=== PATIENT | female | born 1940 | race Caucasian/White ===

== ENCOUNTER 2024-07-03 09:39 | Inpatient (IN) | payer MEDICARE, BC, SELFPAY ==
[2024-07-03] VITALS (31 sets, daily range): BP systolic 145–210; BP diastolic 79–131; PULSE 61–93; TEMP 36.6–37.2; O2SAT 90–99; BMI 24.2; BMI 20.3
--- NOTE | 2024-07-03 10:01 | XR_ITS ---
The [address] [address] Patient Name: MEKHI SAHNI MRN: [id number] date: 1940 Sex: F Assigned Patient Location: ER Current Patient Location: ED.MAIN Accession/Order Number: [id number] Exam Date: 07/03/2024 10:33 Report Date: 07/03/2024 10:58 At the request of: OSWALDO WALSH Procedure: XR chest 2V EXAMINATION: XR chest 2V HISTORY: sob COMPARISON: No relevant comparison available. FINDINGS: LUNGS: Hyperexpanded lungs. No appreciable infiltrates, mass, or significant chronic interstitial changes. VASCULATURE: No increased pulmonary vasculature. PLEURA: No pneumothorax, effusion, or pleural thickening. CARDIAC: Borderline cardiomegaly. MEDIASTINUM: No visible mass or adenopathy. BONES: No fracture or visible bone lesion. OTHER: Negative. XR/XR chest 2V IMPRESSION: 1. No acute cardiopulmonary process. 2. Hyperexpanded lungs; possible mild COPD. Electronically authenticated by: ERI OROURKE Date: 07/03/2024 10:58
[2024-07-03] MEDS: IPRATROPIUM/ALBUTEROL SULFATE 3 ML AMPUL.NEB IH (10:19)
[2024-07-03 10:24] LABS: Hematocrit 42.1 % (36.0-48.0); Hemoglobin 13.6 g/dL (12.0-16.0); Mean Corpuscular HGB Conc 32.3 g/dL (29.9-35.2); Mean Corpuscular Hemoglobin 31.9 pg (26.7-34.0); Mean Corpuscular Volume 98.6 fL (81.0-99.0); Mean Platelet Volume 10.3 fL (9.5-13.5); Platelet Count 219 10^3/uL (150-450); Red Blood Count 4.27 10^6/uL (4.20-5.40); Red Cell Distribution Width 13.4 % (11.0-15.0); White Blood Count 9.8 10^3/uL (4.0-11.0)
--- NOTE | 2024-07-03 10:39 | ED.SOB1 ---
HPI - SOB/Dyspnea General Chief Complaint: Shortness of Breath/Dyspnea Stated Complaint: WEAKNESS Time Seen by Provider: 07/03/24 09:47 History of Present Illness HPI Narrative: Patient presents to ED for possible aspiration. Apparently patient went to have breakfast this morning at her assisted living and after breakfast she went back to her room and was in her chair. When they came to check on her shortly after that they said she seemed to be gurgling and short of breath and not breathing well. Her oxygenation was 90 to 92% on room air. She is not normally on any oxygen. They denied that she has any respiratory issues. The patient states she does not remember choking thing but I believe does have some dementia slight. She is a DNR comfort care and assisted living. The patient has no complaints at this time. She does have a rattly cough with mucus production. She does not seem to be stridorous or in acute respiratory distress but does continue to cough up liquidy mucus. Related Data Home Medications ?Medication ?Instructions ?Recorded ?Confirmed acetaminophen 325 mg capsule 650 mg PO Q4H PRN fever or pain 07/03/24 07/03/24 atorvastatin 10 mg tablet 10 mg PO .QHS 07/03/24 07/03/24 calcium 315 mg (as 1 tab PO BID 07/03/24 07/03/24 citrate)-vitamin D3 6.25 mcg (250 unit) tablet carbidopa 25 mg-levodopa 100 mg 1 tab PO Q8H 07/03/24 07/03/24 tablet clopidogrel 75 mg tablet 75 mg PO DAILY 07/03/24 07/03/24 diclofenac sodium 1 % topical gel 2 g topical Q12H PRN pain 07/03/24 07/03/24 (Voltaren Arthritis Pain) dorzolamide 2 % eye drops 1 drp ophthalmic (eye) Q12H 07/03/24 07/03/24 ergocalciferol (vitamin D2) 1,250 1,250 mcg PO .Monday07/03/24 07/03/24 mcg (50,000 unit) capsule (Vitamin D2) latanoprost 0.005 % eye drops 1 drp ophthalmic (eye) .QHS 07/03/24 07/03/24 loperamide 2 mg capsule 2 mg PO QID PRN loose stool 07/03/24 07/03/24 megestrol 20 mg tablet 20 mg PO Q12H 07/03/24 07/03/24 metoclopramide HCl 5 mg tablet 5 mg PO BID 07/03/24 07/03/24 ondansetron 4 mg disintegrating 4 mg PO Q4H PRN nausea and vomiting 07/03/24 07/03/24 tablet pantoprazole 40 mg tablet,delayed 40 mg PO DAILY 07/03/24 07/03/24 release polyethylene glycol 3350 17 gram 17 g PO DAILY 07/03/24 07/03/24 oral powder packet (ClearLax) Allergies Allergy/AdvReac Type Severity Reaction Status Date / Time codeine AdvReac Intermediate Abdominal Verified 07/03/24 10:03 Pain Review of Systems ROS Status of ROS 10 or more systems reviewed and unremarkable except as noted in history and below [facility] Medical History (Updated 07/03/24 @ 12:11 by Kasia Savage DO) Autonomic neuropathy ?G90.9 - Disorder of the autonomic nervous system, unspecified (ICD-10) Dysphagia ?R13.10 - Dysphagia, unspecified (ICD-10) GERD (gastroesophageal reflux disease) ?K21.9 - Gastro-esophageal reflux disease without esophagitis (ICD-10) Falls frequently ?R29.6 - Repeated falls (ICD-10) Hyperlipemia ?E78.5 - Hyperlipidemia, unspecified (ICD-10) Orthostatic hypotension ?I95.1 - Orthostatic hypotension (ICD-10) Parkinson disease ?G20.A1 - Parkinson's disease without dyskinesia, without mention of fluctuations (ICD-10) Malignant neoplasm of breast ?C50.919 - Malignant neoplasm of unspecified site of unspecified female breast (ICD-10) TIA (transient ischemic attack) ?G45.9 - Transient cerebral ischemic attack, unspecified (ICD-10) Glaucoma ?H40.9 - Unspecified glaucoma (ICD-10) Chronic UTI ?N39.0 - Urinary tract infection, site not specified (ICD-10) Vitamin D deficiency ?E55.9 - Vitamin D deficiency, unspecified (ICD-10) Cachexia ?R64 - Cachexia (ICD-10) Social History Little interest or pleasure in doing things: not at all Feeling down, depressed, or hopeless: not at all Exam Narrative Exam Narrative: General: alert, no acute distress baseline mentation, hypertension Cardiovascular: regular rate and rhythm, normal peripheral perfusion. Respiratory: Rhonchi bilaterally wet productive cough. Extremities: no deformity, no trauma. Neurological: Baseline mentation answering questions appropriately no complaints moving all 4 extremities Constitutional Vital Signs, click to edit/add: Last Vital Signs Temp 97.9 F 07/03/24 09:43 Pulse 87 07/03/24 10:19 Resp 20 07/03/24 10:19 BP 145/90 H 07/03/24 11:46 Pulse Ox 99 07/03/24 12:01 O2 Del Method Room Air 07/03/24 10:26 O2 Flow Rate 4 07/03/24 10:19 FiO2 95 07/03/24 10:19 Course Vital Signs Vital signs: Vital Signs Temperature 97.9 F 07/03/24 09:43 Pulse Rate 93 H 07/03/24 09:43 Respiratory Rate 22 H 07/03/24 09:43 Blood Pressure 210/125 H 07/03/24 09:43 Pulse Oximetry 92 L 07/03/24 09:43 Oxygen Delivery Method Nasal Cannula 07/03/24 09:43 Oxygen Delivery Flow Rate 2 07/03/24 09:43 Temperature 97.9 F 07/03/24 09:43 Pulse Rate 87 07/03/24 10:19 Respiratory Rate 20 07/03/24 10:19 Blood Pressure 145/90 H 07/03/24 11:46 Pulse Oximetry 99 07/03/24 12:01 Oxygen Delivery Method Room Air 07/03/24 10:26 Oxygen Delivery Flow Rate 4 07/03/24 10:19 Fraction of Inspired Oxygen 95 07/03/24 10:19 MDM - SOB/Dyspnea MDM Narrative Medical decision making narrative: I did have patient cough is much as she could and did suction her mouth and back of throat to try and get some of the mucus up. I did not appreciate any evidence of foreign body or obstruction. Patient was found to be COVID-positive. Chest x-ray clear for any obvious foreign body or obstruction. I think most of her shortness of breath and hypoxia is coming from having COVID. Patient will be admitted for the hypoxia, need for oxygen support and weakness. Family and patient informed and they are comfortable with care plan for admission. Dr. Olivier will admit the patient for further care. Differential Diagnosis Differential diagnosis: Likely acute exacerbation of chronic obstructive airways disease, congestive heart failure, community acquired pneumonia and other (Flu COVID aspiration) Lab Data Attestation: I reviewed the patient's lab results. Labs: Lab Results 07/03/24 07/03/24 Range/Units 10:05 10:16 WBC 9.8 (4.0-11.0) 10^3/uL RBC 4.27 (4.20-5.40) 10^6/uL Hgb 13.6 (12.0-16.0) g/dL Hct 42.1 (36.0-48.0) % MCV 98.6 (81.0-99.0) fL MCH 31.9 (26.7-34.0) pg MCHC 32.3 (29.9-35.2) g/dL RDW 13.4 (11.0-15.0) % Plt Count 219 (150-450) 10^3/uL MPV 10.3 (9.5-13.5) fL Seg Neuts % (Manual) 90.0 H (43.0-75.0) Lymphocytes % (Manual) 4.0 L (20.5-60.0) % Monocytes % (Manual) 6.0 (1.7-12.0) % Eosinophils % (Manual) 0.0 L (0.9-7.0) % Basophils % (Manual) 0.0 L (0.2-2.0) % Neutrophils # (Manual) 8.82 H (1.4-6.5) 10^3/uL Lymphocytes # (Manual) 0.39 L (1.20-3.80) 10^3/uL Monocytes # (Manual) 0.58 (0.30-0.80) 10^3/uL Eosinophils # (Manual) 0.00 (0.00-0.70) 10^3/uL Basophils # (Manual) 0.00 (0.00-0.10) 10^3/uL Sodium 135 L (136-145) mmol/L Potassium 3.8 (3.5-5.1) mmol/L Chloride 100 (98-107) mmol/L Carbon Dioxide 22.1 (21.0-32.0) mmol/L Anion Gap 16.7 BUN 19.0 H (7.0-18.0) mg/dL Creatinine 1.05 H (0.55-1.02) mg/dL Est GFR ( Amer) >60 (>=60 mL/min/1.73m^2) Est GFR (Non-Af Amer) 50 L (>=60 mL/min/1.73m^2) BUN/Creatinine Ratio 18.1 Glucose 190 H (74-106) mg/dL Calcium 9.3 (8.5-10.1) mg/dL Total Bilirubin 0.5 (0.2-1.0) mg/dL AST 19 (15-37) U/L ALT <6 L (14-59) U/L Alkaline Phosphatase 69 (46-116) U/L Total Protein 7.2 (6.4-8.2) g/dL Albumin 3.8 (3.4-5.0) g/dL Globulin 3.4 g/dL Albumin/Globulin Ratio 1.1 Influenza Type A Ag Negative Influenza Type B Ag Negative RSV Antigen Not detected (NOT DETECTE) SARS-CoV-2 Ag (CV2AG) Positive A (NEGATIVE) Imaging Data Chest x-ray: Radiologist's impression: ITS Impressions Chest X-Ray 07/03/24 10:01 IMPRESSION: 1. No acute cardiopulmonary process. 2. Hyperexpanded lungs; possible mild COPD. Electronically authenticated by: ERI OROURKE Date: 07/03/2024 10:58 Discharge Plan Discharge Chief Complaint: Shortness of Breath/Dyspnea Clinical Impression: COVID-19, Hypoxia, Weakness Patient Disposition: Admitted as Observation Time of Disposition Decision: 12:11 Condition: Fair Prescriptions / Home Meds: No Action atorvastatin 10 mg tablet 10 mg PO .QHS carbidopa-levodopa 25-100 mg tablet 1 tab PO Q8H clopidogrel 75 mg tablet 75 mg PO DAILY dorzolamide 2 % drops 1 drp OPHTHALMIC (EYE) Q12H Patient Comments: BOTH EYES ergocalciferol (vitamin D2) [Vitamin D2] 1,250 mcg (50,000 unit) capsule 1,250 mcg PO .Monday latanoprost 0.005 % drops 1 drp OPHTHALMIC (EYE) .QHS Patient Comments: BOTH EYES megestrol 20 mg tablet 20 mg PO Q12H ondansetron 4 mg tablet,disintegrating 4 mg PO Q4H PRN (Reason: nausea and vomiting) pantoprazole 40 mg tablet,delayed release (DR/EC) 40 mg PO DAILY acetaminophen 325 mg capsule 650 mg PO Q4H PRN (Reason: fever or pain) loperamide 2 mg capsule 2 mg PO QID PRN (Reason: loose stool) polyethylene glycol 3350 [ClearLax] 17 gram powder in packet 17 g PO DAILY metoclopramide HCl 5 mg tablet 5 mg PO BID calcium citrate-vitamin D3 315 mg-6.25 mcg (250 unit) tablet 1 tab PO BID diclofenac sodium [Voltaren Arthritis Pain] 1 % gel 2 g topical Q12H PRN (Reason: pain) Rx Instructions: APPLY TO LOWER BACK Print Language: Bengali Referrals: Physician,Non-Staff, MD [Primary Care Provider] - 1 week
[2024-07-03 10:41] LABS: Influenza Virus A Antigen Negative; Influenza Virus B Antigen Negative; Internal Control Within Normal Limits; Respiratory Syncytial Virus Not Detected (NOT DETECTE); SARS-CoV-2 Ag POSITIVE (NEGATIVE)
[2024-07-03 10:41] LABS: Lymphocytes Absolute Manual 0.39 10^3/uL (1.20-3.80); Monocytes Absolute Manual 0.58 10^3/uL (0.30-0.80); Segmented Neut Absolute Manual 8.82 10^3/uL (1.4-6.5)
[2024-07-03 10:51] LABS: Alanine Aminotransferase <6 U/L (14-59); Albumin Globulin Ratio 1.1; Albumin Level 3.8 g/dL (3.4-5.0); Alkaline Phosphatase 69 U/L (46-116); Anion Gap 16.7; Aspartate Amino Transferase 19 U/L (15-37); BUN Creatinine Ratio 18.1; Bilirubin Total 0.5 mg/dL (0.2-1.0); Calcium 9.3 mg/dL (8.5-10.1); Carbon Dioxide 22.1 mmol/L (21.0-32.0); Chloride 100 mmol/L (98-107); Estimated GFR (African America >60 (>=60 mL/min/1.73m^2); Estimated GFR (Non-African Ame 50 (>=60 mL/min/1.73m^2); Globulin 3.4 g/dL; Glucose 190 mg/dL (74-106); Potassium 3.8 mmol/L (3.5-5.1); Sodium 135 mmol/L (136-145); Total Protein 7.2 g/dL (6.4-8.2)
--- NOTE | 2024-07-03 12:45 | P.HP_ITS ---
HPI H&P: HPI History of Present Illness Chief complaint: WEAKNESS, COVID, HYPOXIA Narrative: Patient is a long[facility]term [facility] at a local [facility], ate breakfast, did have some coughing during that time and then later on that morning they found her with acute hypoxia with O2 sat in the 70s, she was transferred out to the emergency room, and was indeed confirmed in the 70s when she was not on supplemental oxygen, possible aspiration pneumonia but also tested positive for COVID-19 Opioid HPI Opioid Management Most Recent Pain and Opioid Data: Last Pain Assessment 07/03/24 18:00 Review of Systems ROS Status of ROS 10 or more systems reviewed and unremark able except as noted in history and below [facility] Medical History (Updated 07/03/24 @ 12:11 by Kasia Savage DO) Autonomic neuropathy ?G90.9 - Disorder of the autonomic nervous system, unspecified (ICD-10) Dysphagia ?R13.10 - Dysphagia, unspecified (ICD-10) GERD (gastroesophageal reflux disease) ?K21.9 - Gastro-esophageal reflux disease without esophagitis (ICD-10) Falls frequently ?R29.6 - Repeated falls (ICD-10) Hyperlipemia ?E78.5 - Hyperlipidemia, unspecified (ICD-10) Orthostatic hypotension ?I95.1 - Orthostatic hypotension (ICD-10) Parkinson disease ?G20.A1 - Parkinson's disease without dyskinesia, without mention of fluctuations (ICD-10) Malignant neoplasm of breast ?C50.919 - Malignant neoplasm of unspecified site of unspecified female breast (ICD-10) TIA (transient ischemic attack) ?G45.9 - Transient cerebral ischemic attack, unspecified (ICD-10) Glaucoma ?H40.9 - Unspecified glaucoma (ICD-10) Chronic UTI ?N39.0 - Urinary tract infection, site not specified (ICD-10) Vitamin D deficiency ?E55.9 - Vitamin D deficiency, unspecified (ICD-10) Cachexia ?R64 - Cachexia (ICD-10) Social History Little interest or pleasure in doing things: not at all Feeling down, depressed, or hopeless: not at all Meds Home Medications and Allergies Home Medications ?Medication ?Instructions ?Recorded ?Confirmed ?Type acetaminophen 325 mg capsule 650 mg PO Q4H PRN fever or pain 07/03/24 07/03/24 History atorvastatin 10 mg tablet 10 mg PO .QHS 07/03/24 07/03/24 History calcium 315 mg (as 1 tab PO BID 07/03/24 07/03/24 History citrate)-vitamin D3 6.25 mcg (250 unit) tablet carbidopa 25 mg-levodopa 100 mg 1 tab PO Q8H 07/03/24 07/03/24 History tablet clopidogrel 75 mg tablet 75 mg PO DAILY 07/03/24 07/03/24 History diclofenac sodium 1 % topical gel 2 g topical Q12H PRN pain 07/03/24 07/03/24 History (Voltaren Arthritis Pain) dorzolamide 2 % eye drops 1 drp ophthalmic (eye) Q12H 07/03/24 07/03/24 History ergocalciferol (vitamin D2) 1,250 1,250 mcg PO .Monday07/03/24 07/03/24 History mcg (50,000 unit) capsule (Vitamin D2) latanoprost 0.005 % eye drops 1 drp ophthalmic (eye) .QHS 07/03/24 07/03/24 History loperamide 2 mg capsule 2 mg PO QID PRN loose stool 07/03/24 07/03/24 History megestrol 20 mg tablet 20 mg PO Q12H 07/03/24 07/03/24 History metoclopramide HCl 5 mg tablet 5 mg PO BID 07/03/24 07/03/24 History ondansetron 4 mg disintegrating 4 mg PO Q4H PRN nausea and vomiting 07/03/24 07/03/24 History tablet pantoprazole 40 mg tablet,delayed 40 mg PO DAILY 07/03/24 07/03/24 History release polyethylene glycol 3350 17 gram 17 g PO DAILY 07/03/24 07/03/24 History oral powder packet (ClearLax) Allergies Allergy/AdvReac Type Severity Reaction Status Date / Time codeine AdvReac Intermediate Abdominal Verified 07/03/24 10:03 Pain Exam Constitutional Vital Signs, click to edit/add: Last Vital Signs Temp 97.9 F 07/03/24 09:43 Pulse 87 07/03/24 10:19 Resp 20 07/03/24 10:19 BP 145/90 H 07/03/24 11:46 Pulse Ox 99 07/03/24 12:01 O2 Del Method Room Air 07/03/24 10:26 O2 Flow Rate 4 07/03/24 10:19 FiO2 95 07/03/24 10:19 Documenting provider has reviewed patient's vital signs: yes Common normals: no apparent distress Chest Common normals: inspection of chest normal Respiratory Common normals: normal respiratory effort and no use of accessory muscles Auscultation: rhonchi Cardio Common normals: regular rate and regular rhythm Neuro Common normals: CN's II-XII intact bilaterally and moves all extremities Results Labs Labs: Short CBC 07/03/24 Range/Units 10:16 WBC 9.8 (4.0-11.0) 10^3/uL Hgb 13.6 (12.0-16.0) g/dL Hct 42.1 (36.0-48.0) % Plt Count 219 (150-450) 10^3/uL BMP 07/03/24 10:16 Sodium 135 L Potassium 3.8 Chloride 100 Carbon Dioxide 22.1 BUN 19.0 H Creatinine 1.05 H Glucose 190 H Calcium 9.3 Liver Function 07/03/24 Range/Units 10:16 Total Bilirubin 0.5 (0.2-1.0) mg/dL AST 19 (15-37) U/L ALT <6 L (14-59) U/L Alkaline Phosphatase 69 (46-116) U/L Albumin 3.8 (3.4-5.0) g/dL Assessment and Plan Assessment and Plan (1) Weakness: (2) Hypoxia: (3) COVID-19: Plan Admission findings: Sinus tachycardia, respiratory distress, elevated blood pressure, white blood cell count normal but with left shift consistent with bacterial process, positive COVID-19 Acute hypoxia requiring supplemental oxygen-likely related to aspiration event, broad-spectrum antibiotics to cover that as well as possible healthcare acquired pneumonia, try to obtain sputum culture Acute [id number] the hypoxia will start patient on remdesivir, steroids, inhalers, try to obtain sputum culture as well Hyponatremia-monitor daily Acute elevation in creatinine-holding off on IV fluids secondary to the COVID- monitor daily Elevated high-sensitivity troponin likely related to the [id number] track and trend Dementia-this is likely to deteriorate while she is here in the hospital Hypercholesterolemia continue with home medications Parkinson's-continue with home medications Coronary artery disease-continue with Plavix GERD continue with home medications Admission status: Patient with acute COVID-19 as well as acute hypoxic respiratory failure secondary to aspiration pneumonia-medically necessary treatment will span 2 midnights. Inpatient status
[2024-07-03] MEDS: HYDRALAZINE HCL 20 MG/ML VIAL 10 MG IVP (13:32)
--- NOTE | 2024-07-03 13:47 | SWNOTE1 ---
Nurse is completing assessment, SW to stop back in later today or tomorrow morning. Pt is [facility].
[2024-07-03] MEDS: 0.9 % SODIUM CHLORIDE 250 ML 10 ML IV (13:51)
[2024-07-03] MEDS: REMDESIVIR 200 MG in 0.9 % SODIUM CHLORIDE 250 ML 250 MG IV (13:51)
[2024-07-03] MEDS: DEXAMETHASONE SOD PHOS 4 MG/ML VIAL 6 MG IV (14:02)
[2024-07-03] MEDS: CARBIDOPA/LEVODOPA 25 MG-100 MG TABLET 1 TAB PO ×2 (14:03→21:29)
[2024-07-03 14:20] LABS: Thyroid Stimulating Hormone 2.326 uIU/mL (0.358-3.740)
[2024-07-03 14:29] LABS: Troponin I High Sensitivity 144.3 pg/mL (4.0-51.3)
[2024-07-03 14:47] LABS: Lactate/Lactic Acid 2.1 mmol/L (0.4-2.0)
--- NOTE | 2024-07-03 15:10 | SWNOTE1 ---
JERMAIN faxed updates to [facility]. JERMAIN stopped to see pt, pt is not able to answer questions at this time. No family in room at this time.
--- NOTE | 2024-07-03 15:22 | SWNOTE1 ---
JERMAIN did reach back out to Sara to see if pt ambulated back at [facility]. Sara replied and stated pt uses a walker and wheelchair and she does not wear any oxygen.
[2024-07-03] MEDS: LEVOFLOXACIN IN DEXTROSE 5 % 750 MG/150 ML PREMIX 100 MG IV (15:40)
--- NOTE | 2024-07-03 15:42 | SWNOTE1 ---
Important Message from [employer] reviewed and discussed with patient's Helena dempsey, over the phone. Pt's daughter verbalized understanding and SW signed the form that it was reviewed. Original placed in pt's room and copy placed in patient?s chart.
--- NOTE | 2024-07-03 15:42 | SWNOTE1 ---
JERMAIN did speak with daughter Helena over the phone. She voiced pt is happy at [facility]. She does need assistance to get up and also is a one person transfer. She does ambulate at times with walker as well. Plan is for her to return to [place] as long as she is doing well enough. Pt's daughter did ask about visiting policy for covid patients? JERMAIN was unsure and had to reach out to nurse. JERMAIN spoke with nurse. JERMAIN then spoke with director who is covering med/surge floor. At this time policy is that pt's family member has to wear a mask while in the room visiting. JERMAIN called daughter back and let her know.
[2024-07-03] MEDS: ALBUTEROL SULFATE 200 PUFF/6.7 GM INHALER IH ×2 (16:19→23:08)
[2024-07-03 16:37] LABS: Glucometer 168 mg/dL (74-106)
[2024-07-03 16:54] LABS: Lactate/Lactic Acid 1.5 mmol/L (0.4-2.0)
[2024-07-03 17:04] LABS: Troponin I High Sensitivity 162.3 pg/mL (4.0-51.3)
[2024-07-03] MEDS: PIPERACILLIN SODIUM/TAZOBACTAM 3.375 GM in 0.9 % SODIUM CHLORIDE 50 ML IV (17:28)
[2024-07-03] MEDS: ONDANSETRON PF 4 MG/2 ML VIAL IV (17:28)
--- NOTE | 2024-07-03 19:26 | PC.NURSE ---
very small amount
[2024-07-03 20:28] LABS: Bilirubin Urine NEGATIVE (NEGATIVE); Blood Urine NEGATIVE (NEGATIVE); Clarity Urine CLEAR (CLEAR); Color Urine LT. YELLOW (YELLOW); Glucose Urine UA 100 mg/dL (NEGATIVE); Ketones Urine NEGATIVE (NEGATIVE); Leukocyte Esterase Urine NEGATIVE (NEGATIVE); Nitrite Urine NEGATIVE (NEGATIVE); Protein Urine TRACE mg/dL (NEG/TRACE); Specific Gravity Urine >=1.030 (1.005-1.025); Urobilinogen Urine 0.2 EU/dL (0.2-1.0)
[2024-07-03 20:54] LABS: Amorphous Sediment Urine FEW; Bacteria Urine NONE SEEN #/HPF (NONE SEEN); Cast Seen? NONE SEEN #/LPF (NONE SEEN); Crystals Seen? None Seen #/HPF (None Seen); Mucus Urine NONE SEEN (NONE SEEN); RBC Urine NONE SEEN #/HPF (0-2); Squamous Epithelial Cell Urine NONE SEEN #/LPF (NONE/RARE); WBC Urine NONE SEEN #/HPF (NONE SEEN)
[2024-07-03] MEDS: LATANOPROST 0.005% 2.5 ML BOTTLE 1 DROP OP (21:26)
[2024-07-03] MEDS: METOCLOPRAMIDE HCL 10 MG TABLET 5 MG PO (21:26)
[2024-07-03] MEDS: CALCIUM CARBONATE 600 MG/VITAMIN D3 400 IU TABLET 1 TAB PO (21:26)
[2024-07-03] MEDS: MEGESTROL ACETATE 400 MG/10 ML ORAL.SUSP 20 MG PO (21:26)
[2024-07-03] MEDS: CETIRIZINE HCL 10 MG TABLET 20 MG PO (21:26)
[2024-07-03] MEDS: DORZOLAMIDE HCL 2% OP SOL 200 DROP/10 ML BOTTLE EYE-BOTH (21:27)
[2024-07-03] MEDS: ATORVASTATIN CALCIUM 10 MG TABLET PO (21:28)
[2024-07-03] MEDS: FAMOTIDINE 20 MG TABLET PO (21:28)
[2024-07-03 21:30] LABS: Glucometer 138 mg/dL (74-106)
[2024-07-04] VITALS (9 sets, daily range): BP systolic 144–159; BP diastolic 64–99; PULSE 66–93; TEMP 36.4–36.9; O2SAT 92–96
[2024-07-04] MEDS: PIPERACILLIN SODIUM/TAZOBACTAM 3.375 GM in 0.9 % SODIUM CHLORIDE 50 ML IV ×4 (00:46→23:51)
[2024-07-04] MEDS: ALBUTEROL SULFATE 200 PUFF/6.7 GM INHALER IH (04:12)
--- NOTE | 2024-07-04 04:12 | RESP.RT ---
Pt unable to do PEP at this time.
[2024-07-04] MEDS: CARBIDOPA/LEVODOPA 25 MG-100 MG TABLET 1 TAB PO ×3 (05:16→22:13)
[2024-07-04 06:45] LABS: Basophils Percent Auto 0.1 % (0.2-2.0); Hematocrit 36.5 % (36.0-48.0); Immature Granulocytes Abs Auto 0.06 10^3/uL (0.00-0.03); Immature Granulocytes Pct Auto 0.5 % (0.0-0.5); Lymphocytes Absolute Auto 0.3 10^3/uL (1.2-3.8); Lymphocytes Percent Auto 2.4 % (20.5-60.0); Mean Corpuscular HGB Conc 32.9 g/dL (29.9-35.2); Mean Corpuscular Hemoglobin 32.3 pg (26.7-34.0); Mean Corpuscular Volume 98.4 fL (81.0-99.0); Monocytes Absolute Auto 0.7 10^3/uL (0.3-0.8); Monocytes Percent Auto 6.2 % (1.7-12.0); Neutrophils Absolute Auto 10.9 10^3/uL (1.4-6.5); Neutrophils Percent Auto 90.8 % (43.0-75.0); Platelet Count 179 10^3/uL (150-450); Red Blood Count 3.71 10^6/uL (4.20-5.40); Red Cell Distribution Width 13.4 % (11.0-15.0)
[2024-07-04 07:18] LABS: Anion Gap 14.5; Calcium 8.3 mg/dL (8.5-10.1); Carbon Dioxide 22.2 mmol/L (21.0-32.0); Chloride 100 mmol/L (98-107); Estimated GFR (African America >60 (>=60 mL/min/1.73m^2); Estimated GFR (Non-African Ame 53 (>=60 mL/min/1.73m^2); Glucose 152 mg/dL (74-106); Potassium 3.7 mmol/L (3.5-5.1); Sodium 133 mmol/L (136-145)
[2024-07-04 07:41] LABS: Troponin I High Sensitivity 110.2 pg/mL (4.0-51.3)
[2024-07-04 07:50] LABS: Glucometer 130 mg/dL (74-106)
--- NOTE | 2024-07-04 07:53 | PC.NURSE ---
[id number] lab called with critical high bnp updated Dr Olivier at [id number]
--- NOTE | 2024-07-04 09:38 | CM.NOTE ---
Rounds made with Dr. Olivier, pt having increased weakness today. PT will re-evaluate pt today for discharge planning. Pt is at [facility] at this time.
[2024-07-04] MEDS: CLOPIDOGREL BISULFATE 75 MG TABLET PO (09:48)
[2024-07-04] MEDS: DEXAMETHASONE SOD PHOS 4 MG/ML VIAL 6 MG IV (09:48)
[2024-07-04] MEDS: DORZOLAMIDE HCL 2% OP SOL 200 DROP/10 ML BOTTLE EYE-BOTH ×2 (09:49→22:15)
[2024-07-04] MEDS: METOCLOPRAMIDE HCL 10 MG TABLET 5 MG PO ×2 (09:49→22:14)
[2024-07-04] MEDS: CALCIUM CARBONATE 600 MG/VITAMIN D3 400 IU TABLET 1 TAB PO ×2 (09:49→22:13)
[2024-07-04] MEDS: POLYETHYLENE GLYCOL 3350 17 GM POWDER PACKET PO (09:50)
[2024-07-04] MEDS: MEGESTROL ACETATE 400 MG/10 ML ORAL.SUSP 20 MG PO ×2 (09:54→22:12)
--- NOTE | 2024-07-04 10:21 | P.PN_ITS ---
Progress Note: Subjective Subjective Interval history: Patient somewhat conversational this morning, no significant dyspnea, is currently off of supplemental oxygen Exam Constitutional Vital Signs, click to edit/add: Last Vital Signs Temp 97.7 F 07/04/24 08:00 Pulse 68 07/04/24 08:00 Resp 16 07/04/24 08:00 BP 157/84 H 07/04/24 08:00 Pulse Ox 96 07/04/24 08:00 O2 Del Method Room Air 07/04/24 08:00 O2 Flow Rate 2 07/03/24 15:47 FiO2 95 07/03/24 10:19 Documenting provider has reviewed patient's vital signs: yes Common normals: no apparent distress Chest Common normals: inspection of chest normal Respiratory Common normals: normal respiratory effort and no use of accessory muscles Auscultation: rhonchi (Much clearer this morning) Cardio Common normals: regular rate and regular rhythm Neuro Common normals: CN's II-XII intact bilaterally and moves all extremities Progress Note: Objective Labs Labs: Short CBC 07/03/24 07/04/24 Range/Units 10:16 06:12 WBC 9.8 12.0 H (4.0-11.0) 10^3/uL Hgb 13.6 12.0 (12.0-16.0) g/dL Hct 42.1 36.5 (36.0-48.0) % Plt Count 219 179 (150-450) 10^3/uL BMP 07/03/24 07/04/24 10:16 06:12 Sodium 135 L 133 L Potassium 3.8 3.7 Chloride 100 100 Carbon Dioxide 22.1 22.2 BUN 19.0 H 18.0 Creatinine 1.05 H 1.00 Glucose 190 H 152 H Calcium 9.3 8.3 L Liver Function 07/03/24 Range/Units 10:16 Total Bilirubin 0.5 (0.2-1.0) mg/dL AST 19 (15-37) U/L ALT <6 L (14-59) U/L Alkaline Phosphatase 69 (46-116) U/L Albumin 3.8 (3.4-5.0) g/dL Urine 07/03/24 Range/Units 20:06 Urine Color Lt. yellow (YELLOW) Urine Clarity Clear (CLEAR) Urine pH 6.0 (5.0-9.0) Ur Specific [place] >=1.030 A (1.005-1.025) Urine Protein Trace (NEG/TRACE) mg/dL Urine Glucose (UA) 100 A (NEGATIVE) mg/dL Progress Note: A&P Assessment and Plan (1) Weakness: (2) Hypoxia: (3) COVID-19: Plan Admission findings: Sinus tachycardia, respiratory distress, elevated blood pressure, lactic acidosis, white blood cell count normal but with left shift consistent with bacterial process, positive COVID-19 Acute hypoxia requiring supplemental oxygen-likely related to aspiration event, broad-spectrum antibiotics to cover that as well as possible healthcare acquired pneumonia, try to obtain sputum culture Acute [id number] the hypoxia will start patient on remdesivir, steroids, inhalers, try to obtain sputum culture as well-patient currently off of supplemental oxygen is responding well to treatment, maintain at least 1 more day of IV remdesivir Hyponatremia-monitor daily, down somewhat today Acute elevation in creatinine-holding off on IV fluids secondary to the COVID- monitor daily Elevated high-sensitivity troponin and BNP likely related to the [id number] track and trend, troponin somewhat improved, BNP somewhat elevated, holding off on echocardiogram as recommended by cardiology in the case of acute COVID-19 Dementia-this is likely to deteriorate while she is here in the hospital Hypercholesterolemia continue with home medications Parkinson's-continue with home medications Coronary artery disease-continue with Plavix GERD continue with home medications Admission status: Patient with acute COVID-19 as well as acute hypoxic respiratory failure secondary to aspiration pneumonia-medically necessary treatment will span 2 midnights. Inpatient status ?
[2024-07-04] MEDS: FUROSEMIDE 40 MG/4 ML VIAL IVP (11:36)
[2024-07-04 11:44] LABS: Glucometer 130 mg/dL (74-106)
--- NOTE | 2024-07-04 11:55 | PC.NURSE ---
patient was up in the chair with oxygen on. Stable conditin at this time
--- NOTE | 2024-07-04 13:06 | SWNOTE1 ---
JERMAIN called and spoke to pt's daughter, brian, in regards to recommendations of SNF. Brian voiced she thought it may be coming. She would like SW to look in to [facility]. If [facility] does not work, then she would like the [facility]. JERMAIN called and spoke to Vijaya at [facility] and she voiced to send over for them to review. Referral sent to [facility]. Referral included face sheet, ED note, H&P, provider notes, case management report, nursing notes, diagnostic imaging, med list, and PT/OT notes.
--- NOTE | 2024-07-04 13:46 | SWNOTE1 ---
[facility] rehab is not able to accept. SW called daughter to update and referral being sent to [facility]. Referral sent to [facility]. Referral included face sheet, ED note, H&P, provider notes, case management report, nursing notes, diagnostic imaging, med list, and PT/OT notes.
[2024-07-04] MEDS: REMDESIVIR 100 MG in 0.9 % SODIUM CHLORIDE 100 ML 200 MG IV (14:47)
--- NOTE | 2024-07-04 15:48 | SWNOTE1 ---
[facility] able [facility] once pt is medically stable for discharge.
[2024-07-04 17:00] LABS: Glucometer 160 mg/dL (74-106)
[2024-07-04] MEDS: INSULIN ASPART 300 UNIT/3 ML PEN SUBQ (17:50)
[2024-07-04] MEDS: FAMOTIDINE 20 MG TABLET PO (22:13)
[2024-07-04] MEDS: BENZONATATE 100 MG CAPSULE 200 MG PO (22:13)
[2024-07-04] MEDS: ATORVASTATIN CALCIUM 10 MG TABLET PO (22:14)
[2024-07-04] MEDS: CETIRIZINE HCL 10 MG TABLET 20 MG PO (22:14)
[2024-07-04] MEDS: LATANOPROST 0.005% 2.5 ML BOTTLE 1 DROP OP (22:15)
[2024-07-05] VITALS (8 sets, daily range): BP systolic 137–166; BP diastolic 78–93; PULSE 59–85; TEMP 36.4–36.7; O2SAT 91–95
[2024-07-05 05:53] LABS: Basophils Percent Auto 0.1 % (0.2-2.0); Hematocrit 40.6 % (36.0-48.0); Hemoglobin 13.5 g/dL (12.0-16.0); Immature Granulocytes Abs Auto 0.08 10^3/uL (0.00-0.03); Immature Granulocytes Pct Auto 0.6 % (0.0-0.5); Lymphocytes Absolute Auto 0.7 10^3/uL (1.2-3.8); Lymphocytes Percent Auto 5.1 % (20.5-60.0); Mean Corpuscular HGB Conc 33.3 g/dL (29.9-35.2); Mean Corpuscular Hemoglobin 32.1 pg (26.7-34.0); Mean Corpuscular Volume 96.7 fL (81.0-99.0); Mean Platelet Volume 10.6 fL (9.5-13.5); Monocytes Percent Auto 6.9 % (1.7-12.0); Neutrophils Absolute Auto 12.5 10^3/uL (1.4-6.5); Neutrophils Percent Auto 87.3 % (43.0-75.0); Platelet Count 235 10^3/uL (150-450); Red Cell Distribution Width 13.4 % (11.0-15.0); White Blood Count 14.4 10^3/uL (4.0-11.0)
[2024-07-05] MEDS: CARBIDOPA/LEVODOPA 25 MG-100 MG TABLET 1 TAB PO ×3 (05:54→22:37)
[2024-07-05 06:06] LABS: Anion Gap 12.1; BUN Creatinine Ratio 19.5; Calcium 8.4 mg/dL (8.5-10.1); Chloride 99 mmol/L (98-107); Estimated GFR (African America 48 (>=60 mL/min/1.73m^2); Estimated GFR (Non-African Ame 40 (>=60 mL/min/1.73m^2); Glucose 110 mg/dL (74-106); Potassium 3.1 mmol/L (3.5-5.1); Sodium 136 mmol/L (136-145)
[2024-07-05 06:32] LABS: Troponin I High Sensitivity 103.1 pg/mL (4.0-51.3)
--- NOTE | 2024-07-05 07:13 | P.DS_ITS ---
DS: Providers Provider Date of admission: 07/03/24 12:49 Primary care physician: Non-Staff Physician, Consults: 07/03/24 12:49 Occupational Therapy Eval and Treat Routine Reason for consultation: Only if needed for Rehab Has provider been notified: No Physical Therapy Eval and Treat Routine Reason for consultation: Eval and Treat Has provider been notified: No DS: Diagnosis Discharge Diagnosis (1) Weakness: (2) Hypoxia: (3) COVID-19: Plan Admission findings: Sinus tachycardia, respiratory distress, elevated blood pressure, lactic acidosis, white blood cell count normal but with left shift consistent with bacterial process, positive COVID-19 Acute hypoxia requiring supplemental oxygen-likely related to aspiration event, broad-spectrum antibiotics to cover that as well as possible healthcare acquired pneumonia, try to obtain sputum culture Acute [id number] the hypoxia will start patient on remdesivir, steroids, inhalers, try to obtain sputum culture as well-patient currently off of supplemental oxygen is responding well to treatment, maintain at least 1 more day of IV remdesivir Hyponatremia-monitor daily, down somewhat today Acute elevation in creatinine-holding off on IV fluids secondary to the COVID- monitor daily Elevated high-sensitivity troponin and BNP likely related to the [id number] track and trend, troponin somewhat improved, BNP somewhat elevated, holding off on echocardiogram as recommended by cardiology in the case of acute COVID-19 Dementia-this is likely to deteriorate while she is here in the hospital Hypercholesterolemia continue with home medications Parkinson's-continue with home medications Coronary artery disease-continue with Plavix GERD continue with home medications Admission status: Patient with acute COVID-19 as well as acute hypoxic respiratory failure secondary to aspiration pneumonia-medically necessary treatment will span 2 midnights. Inpatient status DS: Summary Status at Discharge Overall status at discharge: patient is not back to baseline Time Spent with Patient Time attestation: Total time spent providing and/or coordinating discharge services: Time spent: greater than 30 minutes Exam Constitutional Vital Signs, click to edit/add: Last Vital Signs Temp 97.9 F 07/05/24 04:27 Pulse 66 07/05/24 04:27 Resp 18 07/05/24 04:27 BP 166/93 H 07/05/24 04:27 Pulse Ox 92 L 07/05/24 05:14 O2 Del Method Room Air 07/05/24 05:14 O2 Flow Rate 2 07/03/24 15:47 FiO2 95 07/03/24 10:19 DS: Data Data Completed and Pending Labs on day of discharge: Labs from last 24 hours 07/05/24 07/04/24 07/04/24 05:26 16:59 11:43 WBC 14.4 H RBC 4.20 Hgb 13.5 Hct 40.6 MCV 96.7 MCH 32.1 MCHC 33.3 RDW 13.4 Plt Count 235 MPV 10.6 Neut % (Auto) 87.3 H Lymph % (Auto) 5.1 L [place] % (Auto) 6.9 Eos % (Auto) 0.0 L Baso % (Auto) 0.1 L Neut # (Auto) 12.5 H Lymph # (Auto) 0.7 L [place] # (Auto) 1.0 H Eos # (Auto) 0.0 Baso # (Auto) 0.0 Abs Immat Gran (auto) 0.08 H Imm/Tot Granulo (auto) 0.6 H Sodium 136 Potassium 3.1 L Chloride 99 Carbon Dioxide 28.0 Anion Gap 12.1 BUN 25.0 H Creatinine 1.28 H Est GFR ( Amer) 48 L Est GFR (Non-Af Amer) 40 L BUN/Creatinine Ratio 19.5 Glucose 110 H Calcium 8.4 L Troponin I High Sens 103.1 H* NT-Pro-B Natriuret Pep 1797.0 POC Glucose 160 H 130 H 07/04/24 07/04/24 07:48 06:12 WBC RBC Hgb Hct MCV MCH MCHC RDW Plt Count MPV Neut % (Auto) Lymph % (Auto) [place] % (Auto) Eos % (Auto) Baso % (Auto) Neut # (Auto) Lymph # (Auto) [place] # (Auto) Eos # (Auto) Baso # (Auto) Abs Immat Gran (auto) Imm/Tot Granulo (auto) Sodium 133 L Potassium 3.7 Chloride 100 Carbon Dioxide 22.2 Anion Gap 14.5 BUN 18.0 Creatinine 1.00 Est GFR ( Amer) >60 Est GFR (Non-Af Amer) 53 L BUN/Creatinine Ratio 18.0 Glucose 152 H Calcium 8.3 L Troponin I High Sens 110.2 H* NT-Pro-B Natriuret Pep 4390.0 H* POC Glucose 130 H Discharge Plan Discharge Condition: Fair Discharge Medications: No Action atorvastatin 10 mg tablet 10 mg PO .QHS carbidopa-levodopa 25-100 mg tablet 1 tab PO Q8H clopidogrel 75 mg tablet 75 mg PO DAILY dorzolamide 2 % drops 1 drp OPHTHALMIC (EYE) Q12H Patient Comments: BOTH EYES ergocalciferol (vitamin D2) [Vitamin D2] 1,250 mcg (50,000 unit) capsule 1,250 mcg PO .Monday latanoprost 0.005 % drops 1 drp OPHTHALMIC (EYE) .QHS Patient Comments: BOTH EYES megestrol 20 mg tablet 20 mg PO Q12H ondansetron 4 mg tablet,disintegrating 4 mg PO Q4H PRN (Reason: nausea and vomiting) pantoprazole 40 mg tablet,delayed release (DR/EC) 40 mg PO DAILY acetaminophen 325 mg capsule 650 mg PO Q4H PRN (Reason: fever or pain) loperamide 2 mg capsule 2 mg PO QID PRN (Reason: loose stool) polyethylene glycol 3350 [ClearLax] 17 gram powder in packet 17 g PO DAILY metoclopramide HCl 5 mg tablet 5 mg PO BID calcium citrate-vitamin D3 315 mg-6.25 mcg (250 unit) tablet 1 tab PO BID diclofenac sodium [Voltaren Arthritis Pain] 1 % gel 2 g topical Q12H PRN (Reason: pain) Rx Instructions: APPLY TO LOWER BACK Print Language: Micronesian
[2024-07-05] MEDS: CALCIUM CARBONATE 600 MG/VITAMIN D3 400 IU TABLET 1 TAB PO ×2 (08:42→22:41)
[2024-07-05] MEDS: POTASSIUM CHLORIDE 10 MEQ ER TABLET 20 MEQ PO ×2 (08:42→22:43)
[2024-07-05] MEDS: METOCLOPRAMIDE HCL 10 MG TABLET 5 MG PO ×2 (08:43→22:37)
[2024-07-05] MEDS: PIPERACILLIN SODIUM/TAZOBACTAM 3.375 GM in 0.9 % SODIUM CHLORIDE 50 ML IV ×2 (08:43→16:32)
[2024-07-05] MEDS: DEXAMETHASONE SOD PHOS 4 MG/ML VIAL 6 MG IV (08:43)
[2024-07-05] MEDS: CLOPIDOGREL BISULFATE 75 MG TABLET PO (08:43)
[2024-07-05] MEDS: POLYETHYLENE GLYCOL 3350 17 GM POWDER PACKET PO (08:44)
[2024-07-05] MEDS: 0.9 % SODIUM CHLORIDE 250 ML 10 ML IV (08:44)
[2024-07-05] MEDS: DORZOLAMIDE HCL 2% OP SOL 200 DROP/10 ML BOTTLE EYE-BOTH ×2 (08:44→22:44)
[2024-07-05] MEDS: MEGESTROL ACETATE 400 MG/10 ML ORAL.SUSP 20 MG PO ×2 (08:44→22:36)
--- NOTE | 2024-07-05 09:56 | CM.NOTE ---
Rounds made with Dr. Olivier, pt will discharge to [facility] for skilled therapy when medically stable for discharge.
--- NOTE | 2024-07-05 12:19 | OT.DAILY ---
Occupational Therapy Daily Note OT Inpatient Daily Visit Note Start: 07/04/24 10:52 Freq: Status: Active Protocol: Document 07/05/24 12:00 [id number] (Rec: 07/05/24 12:19 [id number]) OT Visit Details Time In/Time Out Time In 10:15 Time Out 10:42 OT Treatment Plan Subjective Subjective Pt lying in bed, agreeable to move to recliner for breakfast. Limited conversation, Pt answering questions with limited responses. Objective Objective Completed supine to sit on EOB with Mod A, 1-3 tactile and verbal cues to move legs in reciprocal pattern. Sit to stand with Mod A to walker. While seated on EOB Pt was given a wet cloth to complete UB bathing. Demonstrates interest in face only. Good seated balance before standing. Gait belt in place. Pt ambulated to commode. Passed BM, Max A trey-care. Mod A standing up from commode to walker, Pt passed additional BMs at this time. Stand to sit back to commode, Pt demonstrates no response with eyes closed, poor posture and muscle engagement. Required Max verbal cues for safe transfer, called nursing staff in at this time. Assessment Assessment Pt was agreeable and cooperative with commands. Benefits from breaks. Maintaining airway on RA, no SOB. O2 at 92% before completing self-care tasks. Continue OT POC. OT Hospital Account Manager Timed Codes Self-Halfway 27 Management minutes ( minutes) Self-Halfway 2 Management units
--- NOTE | 2024-07-05 12:23 | PT.DAILY ---
Physical Therapy Daily Note PT Daily Note/Assess Start: 07/05/24 12:18 Freq: Status: Active Protocol: Document 07/05/24 12:18 OK (Rec: 07/05/24 12:23 OK [id number]) Physical Therapy Daily Note/Assessment Time In/Time Out Time In 10:14 Time Out 10:55 Pain In Pain N/A Pain Out Pain N/A Subjective Subjective Pt supine upon arrival. Agrees to PT. No facial affect and very soft spoken. Therapeutic Activity Time Therapeutic Activity 25 Minutes (minutes) Therapeutic Activity 2 Units Therapeutic Activity Treatment Bed Mobility Ability Moderate Assist Chair Transfer Moderate Assist,2 Person Assist Ability Therapeutic Activity Supine>sit ModA. Sit>stand to RW ModA+2. Pt has bowel Comments movement while standing. Pt takes 3 small steps and pivots to sit on commode with ModA+2. Pt is cleaned up. Sit>stand again modA+2 and has another bowel movement. Pt is lowered down and is cleaned once again. Nursing present at this point. SIt>stand ModA and pivot to bed with modA. total assist of 2 to pull her up in bed. Total Physical Therapy Time Total Therapy 25 Minutes Total Physical 2 Therapy Units Summary Daily Note Summary Declined transfer ability. Limited session due to uncontrollable bowels.
[2024-07-05] MEDS: REMDESIVIR 100 MG in 0.9 % SODIUM CHLORIDE 100 ML 200 MG IV (14:09)
[2024-07-05] MEDS: LEVOFLOXACIN IN DEXTROSE 5 % 750 MG/150 ML PREMIX 100 MG IV (14:09)
--- NOTE | 2024-07-05 14:09 | SWNOTE1 ---
SW sent updates to [place]. Possible discharge to [place] tomorrow. SW completed HENS and took packet to the floor.
[2024-07-05] MEDS: INSULIN ASPART 300 UNIT/3 ML PEN SUBQ (16:35)
[2024-07-05 16:36] LABS: Glucometer 216 mg/dL (74-106)
--- NOTE | 2024-07-05 18:18 | P.PN_ITS ---
Progress Note: Subjective Subjective Interval history: Much more conversational this morning Exam Constitutional Vital Signs, click to edit/add: Last Vital Signs Temp 98.0 F 07/05/24 16:42 Pulse 76 07/05/24 16:42 Resp 14 07/05/24 16:42 BP 150/78 H 07/05/24 16:42 Pulse Ox 93 L 07/05/24 16:42 O2 Del Method Room Air 07/05/24 16:42 O2 Flow Rate 2 07/03/24 15:47 FiO2 95 07/03/24 10:19 Documenting provider has reviewed patient's vital signs: yes Common normals: no apparent distress Chest Common normals: inspection of chest normal Respiratory Common normals: normal respiratory effort and no use of accessory muscles Auscultation: rhonchi (Essential resolved) Cardio Common normals: regular rate and regular rhythm Neuro Common normals: CN's II-XII intact bilaterally and moves all extremities Progress Note: Objective Labs Labs: Short CBC 07/05/24 Range/Units 05:26 WBC 14.4 H (4.0-11.0) 10^3/uL Hgb 13.5 (12.0-16.0) g/dL Hct 40.6 (36.0-48.0) % Plt Count 235 (150-450) 10^3/uL BMP 07/05/24 05:26 Sodium 136 Potassium 3.1 L Chloride 99 Carbon Dioxide 28.0 BUN 25.0 H Creatinine 1.28 H Glucose 110 H Calcium 8.4 L Progress Note: A&P Assessment and Plan (1) Weakness: (2) Hypoxia: (3) COVID-19: Plan Admission findings: Sinus tachycardia, respiratory distress, elevated blood pressure, lactic acidosis, white blood cell count normal but with left shift consistent with bacterial process, positive COVID-19 Acute hypoxia requiring supplemental oxygen-likely related to aspiration event taken aspiration pneumonia-, broad-spectrum antibiotics to cover that as well as possible healthcare acquired pneumonia, try to obtain sputum culture-overall improved Acute [id number] the hypoxia will start patient on remdesivir, steroids, inhalers, try to obtain sputum culture as well-patient currently off of supplemental oxygen is responding well to treatment, again maintain at least 1 more day of IV remdesivir-if stable tomorrow in the having any further hypoxia could be discharged without the full 5-day course Hyponatremia-monitor daily,-improved today Hypokalemia-supplement Acute elevation in creatinine-slightly elevated today Elevated high-sensitivity troponin and BNP likely related to the [id number] track and trend, troponin somewhat improved, BNP somewhat elevated, holding off on echocardiogram as recommended by cardiology in the case of acute [id number]-sensitivity troponin improved today as well as BNP improved today Dementia-this is likely to deteriorate while she is here in the hospital Hypercholesterolemia continue with home medications Parkinson's-continue with home medications Coronary artery disease-continue with Plavix GERD continue with home medications Admission status: Patient with acute COVID-19 as well as acute hypoxic respiratory failure secondary to aspiration pneumonia-medically necessary treatment will span 2 midnights. Inpatient status ? Urinary Catheter Management Urinary Catheter Management Pure Wick: Cath placed during this visit: yes Urethral indwelling: Yes Reason for continuing: acute urinary retention Insertion date: 07/05/24 Insertion time: 09:00
[2024-07-05 21:21] LABS: Glucometer 93 mg/dL (74-106)
[2024-07-05] MEDS: BENZONATATE 100 MG CAPSULE 200 MG PO (22:37)
[2024-07-05] MEDS: FAMOTIDINE 20 MG TABLET PO (22:42)
[2024-07-05] MEDS: ATORVASTATIN CALCIUM 10 MG TABLET PO (22:43)
[2024-07-05] MEDS: CETIRIZINE HCL 10 MG TABLET 20 MG PO (22:43)
[2024-07-05] MEDS: LATANOPROST 0.005% 2.5 ML BOTTLE 1 DROP OP (22:45)
[2024-07-06] VITALS (7 sets, daily range): BP systolic 125–186; BP diastolic 64–100; PULSE 67–76; TEMP 36.6–37.1; O2SAT 91–93
[2024-07-06] MEDS: PIPERACILLIN SODIUM/TAZOBACTAM 3.375 GM in 0.9 % SODIUM CHLORIDE 50 ML IV ×2 (00:31→08:44)
[2024-07-06] MEDS: CARBIDOPA/LEVODOPA 25 MG-100 MG TABLET 1 TAB PO ×2 (06:30→13:32)
[2024-07-06 07:13] LABS: Basophils Percent Auto 0.1 % (0.2-2.0); Eosinophils Percent Auto 0.2 % (0.9-7.0); Hematocrit 41.7 % (36.0-48.0); Hemoglobin 13.7 g/dL (12.0-16.0); Immature Granulocytes Abs Auto 0.07 10^3/uL (0.00-0.03); Immature Granulocytes Pct Auto 0.6 % (0.0-0.5); Lymphocytes Absolute Auto 0.9 10^3/uL (1.2-3.8); Lymphocytes Percent Auto 7.1 % (20.5-60.0); Mean Corpuscular HGB Conc 32.9 g/dL (29.9-35.2); Mean Corpuscular Hemoglobin 31.9 pg (26.7-34.0); Mean Platelet Volume 10.7 fL (9.5-13.5); Monocytes Percent Auto 7.7 % (1.7-12.0); Neutrophils Absolute Auto 10.7 10^3/uL (1.4-6.5); Neutrophils Percent Auto 84.3 % (43.0-75.0); Platelet Count 235 10^3/uL (150-450); Red Cell Distribution Width 13.3 % (11.0-15.0); White Blood Count 12.7 10^3/uL (4.0-11.0)
[2024-07-06 07:23] LABS: Anion Gap 12.8; BUN Creatinine Ratio 26.1; Calcium 8.8 mg/dL (8.5-10.1); Carbon Dioxide 27.6 mmol/L (21.0-32.0); Chloride 101 mmol/L (98-107); Estimated GFR (African America 53 (>=60 mL/min/1.73m^2); Estimated GFR (Non-African Ame 43 (>=60 mL/min/1.73m^2); Glucose 111 mg/dL (74-106); Potassium 3.4 mmol/L (3.5-5.1); Sodium 138 mmol/L (136-145)
[2024-07-06 07:53] LABS: Troponin I High Sensitivity 87.7 pg/mL (4.0-51.3)
[2024-07-06] MEDS: CALCIUM CARBONATE 600 MG/VITAMIN D3 400 IU TABLET 1 TAB PO (08:39)
[2024-07-06] MEDS: DEXAMETHASONE SOD PHOS 4 MG/ML VIAL 6 MG IV (08:39)
[2024-07-06] MEDS: POTASSIUM CHLORIDE 10 MEQ ER TABLET 20 MEQ PO (08:41)
[2024-07-06] MEDS: METOCLOPRAMIDE HCL 10 MG TABLET 5 MG PO (08:41)
[2024-07-06] MEDS: POLYETHYLENE GLYCOL 3350 17 GM POWDER PACKET PO (08:42)
[2024-07-06] MEDS: CLOPIDOGREL BISULFATE 75 MG TABLET PO (08:42)
[2024-07-06] MEDS: HYDRALAZINE HCL 20 MG/ML VIAL 10 MG IVP (08:45)
[2024-07-06] MEDS: MEGESTROL ACETATE 400 MG/10 ML ORAL.SUSP 20 MG PO (08:49)
[2024-07-06] MEDS: DORZOLAMIDE HCL 2% OP SOL 200 DROP/10 ML BOTTLE EYE-BOTH (08:49)
--- NOTE | 2024-07-06 09:47 | PC.NURSE ---
between 840 and 900 assisted Physical therapy with patient to stand at bedside. This patient stated she needed to go to the bathroom so we had bedside commode and patient sat and urinated. Patient is weak and starts leaning to the right side. PT and this residential mortgage underwriter help stand patient and she has no strength to stand up knees begin to buckle and she does down on her knees and we have to pull her up from her knees to the bed. Her blood pressure was elevated. Nurse gave hydralazine. Patient placed in blebed supine with pillow under rigt buttocks to help relieve pressure and is resting comfortable.
--- NOTE | 2024-07-06 12:24 | PT.DAILY ---
Physical Therapy Daily Note PT Daily Note/Assess Start: 07/05/24 12:18 Freq: Status: Active Protocol: Document 07/06/24 12:05 [id number] (Rec: 07/06/24 12:24 [id number]) Physical Therapy Daily Note/Assessment Time In/Time Out Time In 08:41 Time Out 09:03 Pain In Pain Level 0 Pain Out Pain Level 0 Subjective Subjective Patient received supine in bed with nursing attending to patient. Patient agreeable to participate with PT. Patient requests to have a shower and toilet. Therapeutic Exercise Time Therapeutic Exercise 5 Minutes (minutes) Therapeutic Exercise 0 Units Therapeutic Exercise Treatment Therapeutic Exercise AAROM to BEAR LE to increase strength for: ankle pumps, Treatment SLR, hip ABD/ADD and heel slides x10 reps. Therapeutic Activity Time Therapeutic Activity 17 Minutes (minutes) Therapeutic Activity 1 Units Therapeutic Activity Treatment Bed Mobility Ability Moderate Assist,Maximum Assist,2 Person Assist Chair Transfer Moderate Assist,Maximum Assist,2 Person Assist Ability Therapeutic Activity Bed mobility: Patient soiled, supine to rolling R and L Comments with MOD to MAX +1 to clean. Supine to R sit EOB is MOD A +2, verbal cues to use UE on bed rail. Patient requires additional time to perform functional mobility tasks due to PD. Sitting balance fair to guarded, uses BEAR UE for support with posterior lean. Able to self correct posterior lean x 2 with verbal cues. Transfer: sit to stand to 2WW MOD A +2. Patient ambulated ~3 feet to bedside commode with MOD A +2 and verbal/ tactile cues to advance LE. Patient is MOD A +2 to control descent to bedside commode. Patient with R side lean while on bedside commode, unable to self correct. Patient with decrease response time for communicating and functional movement. Patient states she is ready to return to bed. Bedside commode to stand @ 2WW MAX A +2. Due to BEAR LE weakness patients leg unable to hold her and lowered to floor on knees. Patient is MAX +3 to transfer from floor to bed and MAX +2 to reposition in bed. Patient was soiled with BM, MAX +1 to clean. CBWR and left in care of nursing staff. Total Physical Therapy Time Total Therapy 22 Minutes Total Physical 1 Therapy Units Summary Daily Note Summary Patient fatigues quickly and demonstrates decline with functional movement. Patient would benefit from SNF to address functional deficits.
[2024-07-06 12:28] LABS: Glucometer 214 mg/dL (74-106)
--- NOTE | 2024-07-06 13:30 | PM.DS1 ---
DS: Providers Provider Date of admission: 07/03/24 12:49 Primary care physician: Non-Staff Physician, Consults: 07/03/24 12:49 Occupational Therapy Eval and Treat Routine Reason for consultation: Only if needed for Rehab Has provider been notified: No Physical Therapy Eval and Treat Routine Reason for consultation: Eval and Treat Has provider been notified: No DS: Diagnosis Discharge Diagnosis (1) COVID-19: (2) Hypoxia: (3) Weakness: (4) Parkinson disease: DS: Summary Hospital Course Hospital Course: Reason for admission: See ER note and H&P for details. 83 y/o female to ER with SOB and weakness. Lives in assisted living and staff noticed cough and increased work of breathing. Checked SpO2 and low at 70%. Called EMS and to ER. Covid positive. Continued hypoxia and chest x-ray normal. Continued symptoms and admitted for treatment. Hospital course: Started decadron, levaquin, and remdesivir. Slowly improved. Able to wean off oxygen and normal SpO2 on room air. Continued weakness and very unsteady when up and moving. SOB and cough improved. PT recommended SNF due to weakness. Afebrile. Continued to have normal SpO2 on room air. Transferred to SNF in stable condition. Will complete prednisone x 5 days. Resume home medication as directed. Time Spent with Patient Time attestation: Total time spent providing and/or coordinating discharge services: Time spent: greater than 30 minutes Exam Constitutional Vital Signs, click to edit/add: Last Vital Signs Temp 98.8 F 07/06/24 07:45 Pulse 67 07/06/24 07:45 Resp 18 07/06/24 07:45 BP 125/64 07/06/24 09:54 Pulse Ox 91 L 07/06/24 11:38 O2 Del Method Room Air 07/06/24 11:38 O2 Flow Rate 2 07/03/24 15:47 FiO2 95 07/03/24 10:19 Documenting provider has reviewed patient's vital signs: yes Common normals: no apparent distress, oriented x3 and alert HENMT Common normals: normocephalic Eye Common normals: PERRL and EOMs intact bilaterally Respiratory Common normals: normal respiratory effort and clear to auscultation bilaterally GI Common normals: Normal to inspection, nondistended, normoactive bowel sounds present and non-tender Extremity Common normals: no pedal edema DS: Data Data Completed and Pending Labs on day of discharge: Labs from last 24 hours 07/06/24 07/06/24 07/05/24 12:22 07:03 21:12 WBC 12.7 H RBC 4.30 Hgb 13.7 Hct 41.7 MCV 97.0 MCH 31.9 MCHC 32.9 RDW 13.3 Plt Count 235 MPV 10.7 Neut % (Auto) 84.3 H Lymph % (Auto) 7.1 L [place] % (Auto) 7.7 Eos % (Auto) 0.2 L Baso % (Auto) 0.1 L Neut # (Auto) 10.7 H Lymph # (Auto) 0.9 L [place] # (Auto) 1.0 H Eos # (Auto) 0.0 Baso # (Auto) 0.0 Abs Immat Gran (auto) 0.07 H Imm/Tot Granulo (auto) 0.6 H Sodium 138 Potassium 3.4 L Chloride 101 Carbon Dioxide 27.6 Anion Gap 12.8 BUN 31.0 H Creatinine 1.19 H Est GFR ( Amer) 53 L Est GFR (Non-Af Amer) 43 L BUN/Creatinine Ratio 26.1 Glucose 111 H Calcium 8.8 Troponin I High Sens 87.7 H* NT-Pro-B Natriuret Pep 1315.0 POC Glucose 214 H 93 07/05/24 16:35 WBC RBC Hgb Hct MCV MCH MCHC RDW Plt Count MPV Neut % (Auto) Lymph % (Auto) [place] % (Auto) Eos % (Auto) Baso % (Auto) Neut # (Auto) Lymph # (Auto) [place] # (Auto) Eos # (Auto) Baso # (Auto) Abs Immat Gran (auto) Imm/Tot Granulo (auto) Sodium Potassium Chloride Carbon Dioxide Anion Gap BUN Creatinine Est GFR ( Amer) Est GFR (Non-Af Amer) BUN/Creatinine Ratio Glucose Calcium Troponin I High Sens NT-Pro-B Natriuret Pep POC Glucose 216 H Discharge Plan Discharge Disposition: Xfer SNF Condition: Fair Discharge Medications: New benzonatate 100 mg Capsule 200 mg PO Q8H PRN (Reason: Cough) Qty: 1 0RF prednisone 50 mg tablet 50 mg PO DAILY 5 Days Qty: 5 0RF Continued atorvastatin 10 mg tablet 10 mg PO .QHS carbidopa-levodopa 25-100 mg tablet 1 tab PO Q8H clopidogrel 75 mg tablet 75 mg PO DAILY dorzolamide 2 % drops 1 drp OPHTHALMIC (EYE) Q12H Patient Comments: BOTH EYES ergocalciferol (vitamin D2) [Vitamin D2] 1,250 mcg (50,000 unit) capsule 1,250 mcg PO .Monday latanoprost 0.005 % drops 1 drp OPHTHALMIC (EYE) .QHS Patient Comments: BOTH EYES megestrol 20 mg tablet 20 mg PO Q12H ondansetron 4 mg tablet,disintegrating 4 mg PO Q4H PRN (Reason: nausea and vomiting) pantoprazole 40 mg tablet,delayed release (DR/EC) 40 mg PO DAILY acetaminophen 325 mg capsule 650 mg PO Q4H PRN (Reason: fever or pain) loperamide 2 mg capsule 2 mg PO QID PRN (Reason: loose stool) polyethylene glycol 3350 [ClearLax] 17 gram powder in packet 17 g PO DAILY metoclopramide HCl 5 mg tablet 5 mg PO BID calcium citrate-vitamin D3 315 mg-6.25 mcg (250 unit) tablet 1 tab PO BID diclofenac sodium [Voltaren Arthritis Pain] 1 % gel 2 g topical Q12H PRN (Reason: pain) Rx Instructions: APPLY TO LOWER BACK Print Language: Jamaican Logistician/Architectural Job Captain Instructions: Discharge to [place] skilled Forms: Portal Instructions
[2024-07-06] MEDS: REMDESIVIR 100 MG in 0.9 % SODIUM CHLORIDE 100 ML 200 MG IV (13:32)
[2024-07-06] MEDS: INSULIN ASPART 300 UNIT/3 ML PEN SUBQ (13:32)
--- NOTE | 2024-07-06 14:35 | PC.NURSE ---
rn gave report to [facility] at [facility], all questions answered
== END 2024-07-06 14:30 | DRG 177 ==
LOC: ER 12:11 → MS 12:47
PROVIDERS: Admitting Provider Family Medicine; Emergency Provider Emergency Medicine; Family Provider Family Medicine; Visit Provider Family Medicine
DX: U07.1 COVID-19 (principal); J69.0 Pneumonitis due to inhalation of food and vomit; J96.01 Acute respiratory failure with hypoxia; E87.1 Hypo-osmolality and hyponatremia; R53.1 Weakness; R13.10 Dysphagia, unspecified; K21.9 Gastro-esophageal reflux disease without esophagitis; R29.6 Repeated falls; E78.5 Hyperlipidemia, unspecified; G20.A1 Parkinson's disease without dyskinesia, without mention of fluctuations; Z87.440 Personal history of urinary (tract) infections; Z79.899 Other long term (current) drug therapy; Z66 Do not resuscitate; R79.89 Other specified abnormal findings of blood chemistry; F02.80 Dementia in other diseases classified elsewhere, unspecified severity, without behavioral disturbance, psychotic disturbance, mood disturbance, and anxiety; E78.00 Pure hypercholesterolemia, unspecified; I25.10 Atherosclerotic heart disease of native coronary artery without angina pectoris; E87.6 Hypokalemia; Z85.3 Personal history of malignant neoplasm of breast
CPT/HCPCS: 36415; 71046; 80048; 80053; 81001; 82948; 83605; 83880; 84436; 84443; 84484; 85007; 85025; 85027; 87040; 87070; 87420; 87804; 87811; 94640; 94667; 94668; 94761; 97116; 97161; 97163; 97165; 97530; 97535; 99285; J0248; J0360; J1100; J1940; J2405; J2543

== ENCOUNTER 2024-07-22 12:11 | Emergency (ER) | payer MEDICARE, BC, SELFPAY ==
[2024-07-22] VITALS (14 sets, daily range): BP systolic 101–164; BP diastolic 69–121; PULSE 83–99; TEMP 36.5; O2SAT 89–99; BMI 27.8
--- NOTE | 2024-07-22 12:21 | XR_ITS ---
[facility] [id number] Patient Name: MEKHI SAHNI MRN: [id number] date: 1940 Sex: F Assigned Patient Location: ER Current Patient Location: ER Accession/Order Number: [id number] Exam Date: 07/22/2024 12:25 Report Date: 07/22/2024 14:06 At the request of: ANNA COONEY Procedure: XR chest 1V EXAM: XR chest 1V HISTORY: sob cough COMPARISON: Chest x-ray 07/03/2024. TECHNIQUE: AP chest x-ray. FINDINGS: Cardiac size appears unchanged. Trachea is midline. No mediastinal widening. Lungs are hyperinflated. No interval consolidative change, pneumothorax, or effusion is identified. Osseous structures appear preserved. XR/XR chest 1V IMPRESSION: 1. Pulmonary hyperinflation suggesting COPD. 2. No acute cardiopulmonary process identified. Electronically authenticated by: ABDIEL SRINIVASAN Date: 07/22/2024 14:06
--- NOTE | 2024-07-22 12:21 | ECG_ITS ---
[facility] Test Date: 2024-07-22 Pat Name: MEKHI SAHNI Department: Room: - Gender: Female Grounds And Nursery Specialist: : 1940 Requested By: Order Number: [id number] Reading MD: PIERRE VAZQUEZ Measurements Intervals [place] Rate: 97 P: 73 [place]: 140 QRS: 43 QRSD: 82 T: 53 QT: 332 QTc: 386 Interpretive Statements 1100 Sinus rhythm 2420 RSR (QR) in lead V1/V2, consistent with right ventricular conduction delay [address] depression, can't exclude inferolateral ischemia 9150 abnormal ECG No previous ECG available for comparison Electronically Signed On 07-23-2024 6:51:41 EST by PIERRE VAZQUEZ
[2024-07-22] MEDS: IPRATROPIUM/ALBUTEROL SULFATE 3 ML AMPUL.NEB IH (12:45)
--- NOTE | 2024-07-22 12:46 | ED_ITS ---
HPI - SOB/Dyspnea General Chief Complaint: Shortness of Breath/Dyspnea Stated Complaint: SOB LETHARGIC SOB Time Seen by Provider: 07/22/24 12:42 Source: patient Mode of arrival: ambulance Limitations: no limitations History of Present Illness HPI Narrative: Patient is an 83-year-old female with a history of dementia who presents to the emergency department by ambulance for increasing shortness of breath. She is a DNR comfort care from the [facility]. She was apparently tested positive for flu and shelter reports that she has had increasing shortness of breath today. She wears oxygen by nasal cannula at 2 L chronically. She arrived to the ER hypoxic on nasal cannula, she was placed on 4 L by nasal cannula and breathing treatment is in process at time of my evaluation. Patient denies any focal medical complaints at this time and does not believe she has had any extremity swelling. She denies chest pain, fevers or vomiting. History is limited as the shelter did not provide us with a report on arrival. Related Data Home Medications ?Medication ?Instructions ?Recorded ?Confirmed acetaminophen 325 mg capsule 650 mg PO Q4H PRN fever or pain 07/03/24 07/03/24 atorvastatin 10 mg tablet 10 mg PO .QHS 07/03/24 07/03/24 calcium 315 mg (as 1 tab PO BID 07/03/24 07/03/24 citrate)-vitamin D3 6.25 mcg (250 unit) tablet carbidopa 25 mg-levodopa 100 mg 1 tab PO Q8H 07/03/24 07/03/24 tablet clopidogrel 75 mg tablet 75 mg PO DAILY 07/03/24 07/03/24 diclofenac sodium 1 % topical gel 2 g topical Q12H PRN pain 07/03/24 07/03/24 (Voltaren Arthritis Pain) dorzolamide 2 % eye drops 1 drp ophthalmic (eye) Q12H 07/03/24 07/03/24 ergocalciferol (vitamin D2) 1,250 1,250 mcg PO .Monday07/03/24 07/03/24 mcg (50,000 unit) capsule (Vitamin D2) latanoprost 0.005 % eye drops 1 drp ophthalmic (eye) .QHS 07/03/24 07/03/24 loperamide 2 mg capsule 2 mg PO QID PRN loose stool 07/03/24 07/03/24 megestrol 20 mg tablet 20 mg PO Q12H 07/03/24 07/03/24 metoclopramide HCl 5 mg tablet 5 mg PO BID 07/03/24 07/03/24 ondansetron 4 mg disintegrating 4 mg PO Q4H PRN nausea and vomiting 07/03/24 07/03/24 tablet pantoprazole 40 mg tablet,delayed 40 mg PO DAILY 07/03/24 07/03/24 release polyethylene glycol 3350 17 gram 17 g PO DAILY 07/03/24 07/03/24 oral powder packet (ClearLax) Previous Rx's ?Medication ?Instructions ?Recorded benzonatate 100 mg capsule 200 mg (2 x 100 mg) PO Q8H PRN 07/06/24 Cough #1 cap prednisone 50 mg tablet 50 mg PO DAILY 5 days #5 tabs 07/06/24 albuterol sulfate 2.5 mg/3 mL 2.5 mg (3 mL) inhalation Q4H PRN 07/22/24 (0.083 %) solution for nebulization shortness of breath or wheezing #90 mL methylprednisolone 4 mg tablets in See Rx Instructions .Route 07/22/24 a dose pack (Medrol (Gerson)) .COMPLEX #21 ea Allergies Allergy/AdvReac Type Severity Reaction Status Date / Time codeine AdvReac Intermediate Abdominal Verified 07/03/24 10:03 Pain Review of Systems ROS Status of ROS unobtainable due to medical condition and unobtainable due to mental status [facility] Medical History (Updated 07/22/24 @ 14:14 by NARCISO Gutierrez) Parkinson disease ?G20.A1 - Parkinson's disease without dyskinesia, without mention of fluctuations (ICD-10) Autonomic neuropathy ?G90.9 - Disorder of the autonomic nervous system, unspecified (ICD-10) Dysphagia ?R13.10 - Dysphagia, unspecified (ICD-10) GERD (gastroesophageal reflux disease) ?K21.9 - Gastro-esophageal reflux disease without esophagitis (ICD-10) Falls frequently ?R29.6 - Repeated falls (ICD-10) Hyperlipemia ?E78.5 - Hyperlipidemia, unspecified (ICD-10) Orthostatic hypotension ?I95.1 - Orthostatic hypotension (ICD-10) Malignant neoplasm of breast ?C50.919 - Malignant neoplasm of unspecified site of unspecified female breast (ICD-10) TIA (transient ischemic attack) ?G45.9 - Transient cerebral ischemic attack, unspecified (ICD-10) Glaucoma ?H40.9 - Unspecified glaucoma (ICD-10) Chronic UTI ?N39.0 - Urinary tract infection, site not specified (ICD-10) Vitamin D deficiency ?E55.9 - Vitamin D deficiency, unspecified (ICD-10) Cachexia ?R64 - Cachexia (ICD-10) Social History Little interest or pleasure in doing things: not at all Feeling down, depressed, or hopeless: not at all Exam Narrative Exam Narrative: Gen.: Awake, alert, in no distress Head: Normocephalic, atraumatic ENT: Moist mucous membranes Respiratory: No respiratory distress, diminished lung sounds globally Cardio: Regular rate and rhythm Gastrointestinal: Abdomen is soft, nondistended and nontender to palpation Extremities: Moves extremities equally, no pedal edema Psych: Normal mood and affect Neuro: No focal neuro deficit Skin: Warm, dry, intact Constitutional Vital Signs, click to edit/add: Last Vital Signs Temp 97.7 F 07/22/24 12:12 Pulse 97 H 07/22/24 13:00 Resp 19 07/22/24 13:00 BP 119/83 07/22/24 13:00 Pulse Ox 98 07/22/24 13:03 O2 Del Method Nasal Cannula 07/22/24 13:03 O2 Flow Rate 2 07/22/24 13:03 Course Vital Signs Vital signs: Vital Signs Temperature 97.7 F 07/22/24 12:12 Pulse Rate 85 07/22/24 12:12 Respiratory Rate 18 07/22/24 12:12 Blood Pressure 158/100 H 07/22/24 12:12 Pulse Oximetry 93 L 07/22/24 12:12 Oxygen Delivery Method Room Air 07/22/24 12:12 Temperature 97.7 F 07/22/24 12:12 Pulse Rate 97 H 07/22/24 13:00 Respiratory Rate 19 07/22/24 13:00 Blood Pressure 119/83 07/22/24 13:00 Pulse Oximetry 98 07/22/24 13:03 Oxygen Delivery Method Nasal Cannula 07/22/24 13:03 Oxygen Delivery Flow Rate 2 07/22/24 13:03 MDM - SOB/Dyspnea MDM Narrative Medical decision making narrative: Patient was given a breathing treatment, she was placed back on her 2 L of oxygen by nasal cannula with no hypoxia in the ER. She is resting comfortably with her son at the bedside. Chest x-ray shows no evidence of acute cardiopulmonary changes and labs are stable. Discussed discharge on steroids and breathing treatments, she is a comfort care patient in no distress and does not require an admission at this time. Her son is comfortable with this as well. SUPERVISED APC VISIT, PHYSICIAN ATTESTATION: Based on the medical record the care appears appropriate. ? Medical Records Attestation: I reviewed the patient's medical records. Lab Data Attestation: I reviewed the patient's lab results. Labs: Lab Results 07/22/24 Range/Units 12:39 WBC 12.5 H (4.0-11.0) 10^3/uL RBC 4.28 (4.20-5.40) 10^6/uL Hgb 13.5 (12.0-16.0) g/dL Hct 41.4 (36.0-48.0) % MCV 96.7 (81.0-99.0) fL MCH 31.5 (26.7-34.0) pg MCHC 32.6 (29.9-35.2) g/dL RDW 13.7 (11.0-15.0) % Plt Count 213 (150-450) 10^3/uL MPV 10.7 (9.5-13.5) fL Seg Neuts % (Manual) 86.0 H (43.0-75.0) Lymphocytes % (Manual) 7.0 L (20.5-60.0) % Monocytes % (Manual) 7.0 (1.7-12.0) % Eosinophils % (Manual) 0.0 L (0.9-7.0) % Basophils % (Manual) 0.0 L (0.2-2.0) % Neutrophils # (Manual) 10.75 H (1.4-6.5) 10^3/uL Lymphocytes # (Manual) 0.87 L (1.20-3.80) 10^3/uL Monocytes # (Manual) 0.87 H (0.30-0.80) 10^3/uL Eosinophils # (Manual) 0.00 (0.00-0.70) 10^3/uL Basophils # (Manual) 0.00 (0.00-0.10) 10^3/uL PT 11.4 (9.0-11.6) sec INR 1.08 Sodium 134 L (136-145) mmol/L Potassium 3.9 (3.5-5.1) mmol/L Chloride 99 (98-107) mmol/L Carbon Dioxide 25.7 (21.0-32.0) mmol/L Anion Gap 13.2 BUN 14.0 (7.0-18.0) mg/dL Creatinine 0.95 (0.55-1.02) mg/dL Est GFR ( Amer) >60 (>=60 mL/min/1.73m^2) Est GFR (Non-Af Amer) 56 L (>=60 mL/min/1.73m^2) BUN/Creatinine Ratio 14.7 Glucose 159 H (74-106) mg/dL Lactate 2.0 (0.4-2.0) mmol/L Calcium 8.8 (8.5-10.1) mg/dL Total Bilirubin 0.8 (0.2-1.0) mg/dL AST 18 (15-37) U/L ALT 17 (14-59) U/L Alkaline Phosphatase 77 (46-116) U/L Troponin I High Sens 49.6 (4.0-51.3) pg/mL NT-Pro-B Natriuret Pep 886.0 (<=1800.0) pg/mL Total Protein 6.9 (6.4-8.2) g/dL Albumin 3.2 L (3.4-5.0) g/dL Globulin 3.7 g/dL Albumin/Globulin Ratio 0.9 Imaging Data Chest x-ray: Attestation: I have reviewed the pertinent imaging results. Radiologist's impression: ITS Impressions Chest X-Ray 07/22/24 12:21 IMPRESSION: 1. Pulmonary hyperinflation suggesting COPD. 2. No acute cardiopulmonary process identified. Electronically authenticated by: ABDIEL SRINIVASAN Date: 07/22/2024 14:06 ECG Data Attestation: I personally reviewed and interpreted this ECG as follows: (Normal sinus rhythm at a rate of 97, no acute ST elevation or ectopy. EKG reviewed by attending physician. Mild artifact noted) Discharge Plan Discharge Chief Complaint: Shortness of Breath/Dyspnea Clinical Impression: Influenza, COPD (chronic obstructive pulmonary disease) Patient Disposition: Home, Self-Care Time of Disposition Decision: 14:14 Condition: Good Prescriptions / Home Meds: New albuterol sulfate 2.5 mg /3 mL (0.083 %) solution for nebulization 2.5 mg inhalation Q4H PRN (Reason: shortness of breath or wheezing) Qty: 90 0RF methylprednisolone [Medrol (Gerson)] 4 mg tablets,dose pack See Rx Instructions .ROUTE .COMPLEX Qty: 21 0RF Rx Instructions: Taper as directed No Action atorvastatin 10 mg tablet 10 mg PO .QHS carbidopa-levodopa 25-100 mg tablet 1 tab PO Q8H clopidogrel 75 mg tablet 75 mg PO DAILY dorzolamide 2 % drops 1 drp OPHTHALMIC (EYE) Q12H Patient Comments: BOTH EYES ergocalciferol (vitamin D2) [Vitamin D2] 1,250 mcg (50,000 unit) capsule 1,250 mcg PO .Monday latanoprost 0.005 % drops 1 drp OPHTHALMIC (EYE) .QHS Patient Comments: BOTH EYES megestrol 20 mg tablet 20 mg PO Q12H ondansetron 4 mg tablet,disintegrating 4 mg PO Q4H PRN (Reason: nausea and vomiting) pantoprazole 40 mg tablet,delayed release (DR/EC) 40 mg PO DAILY acetaminophen 325 mg capsule 650 mg PO Q4H PRN (Reason: fever or pain) loperamide 2 mg capsule 2 mg PO QID PRN (Reason: loose stool) polyethylene glycol 3350 [ClearLax] 17 gram powder in packet 17 g PO DAILY metoclopramide HCl 5 mg tablet 5 mg PO BID calcium citrate-vitamin D3 315 mg-6.25 mcg (250 unit) tablet 1 tab PO BID diclofenac sodium [Voltaren Arthritis Pain] 1 % gel 2 g topical Q12H PRN (Reason: pain) Rx Instructions: APPLY TO LOWER BACK benzonatate 100 mg Capsule 200 mg PO Q8H PRN (Reason: Cough) Qty: 1 0RF prednisone 50 mg tablet 50 mg PO DAILY 5 Days Qty: 5 0RF Print Language: Hong Konger Instructions: Influenza (ED) Referrals: Physician,Non-Staff, MD [Primary Care Provider] - 1 week
[2024-07-22 12:48] LABS: Hematocrit 41.4 % (36.0-48.0); Hemoglobin 13.5 g/dL (12.0-16.0); Mean Corpuscular HGB Conc 32.6 g/dL (29.9-35.2); Mean Corpuscular Hemoglobin 31.5 pg (26.7-34.0); Mean Corpuscular Volume 96.7 fL (81.0-99.0); Mean Platelet Volume 10.7 fL (9.5-13.5); Platelet Count 213 10^3/uL (150-450); Red Blood Count 4.28 10^6/uL (4.20-5.40); Red Cell Distribution Width 13.7 % (11.0-15.0); White Blood Count 12.5 10^3/uL (4.0-11.0)
[2024-07-22 13:03] LABS: Alanine Aminotransferase 17 U/L (14-59); Albumin Globulin Ratio 0.9; Albumin Level 3.2 g/dL (3.4-5.0); Alkaline Phosphatase 77 U/L (46-116); Anion Gap 13.2; Aspartate Amino Transferase 18 U/L (15-37); BUN Creatinine Ratio 14.7; Bilirubin Total 0.8 mg/dL (0.2-1.0); Calcium 8.8 mg/dL (8.5-10.1); Carbon Dioxide 25.7 mmol/L (21.0-32.0); Chloride 99 mmol/L (98-107); Estimated GFR (African America >60 (>=60 mL/min/1.73m^2); Estimated GFR (Non-African Ame 56 (>=60 mL/min/1.73m^2); Globulin 3.7 g/dL; Glucose 159 mg/dL (74-106); INR 1.08; Potassium 3.9 mmol/L (3.5-5.1); Prothrombin Time 11.4 sec (9.0-11.6); Sodium 134 mmol/L (136-145); Total Protein 6.9 g/dL (6.4-8.2)
[2024-07-22 13:04] LABS: Troponin I High Sensitivity 49.6 pg/mL (4.0-51.3)
[2024-07-22 13:11] LABS: Lymphocytes Absolute Manual 0.87 10^3/uL (1.20-3.80); Monocytes Absolute Manual 0.87 10^3/uL (0.30-0.80); Segmented Neut Absolute Manual 10.75 10^3/uL (1.4-6.5)
[2024-07-22] MEDS: METHYLPREDNISOLONE SOD SUCC PF 125 MG/2 ML VIAL IVP (14:39)
== END 2024-07-22 15:13 | disposition home or self-care (01) ==
PROVIDERS: Physician Assistant; Emergency Provider Emergency Medicine; Family Provider Family Medicine
DX: J11.1 Influenza due to unidentified influenza virus with other respiratory manifestations (principal); J44.9 Chronic obstructive pulmonary disease, unspecified; R06.02 Shortness of breath; F03.90 Unspecified dementia, unspecified severity, without behavioral disturbance, psychotic disturbance, mood disturbance, and anxiety; Z66 Do not resuscitate; Z99.81 Dependence on supplemental oxygen; R09.02 Hypoxemia
CPT/HCPCS: 36415; 71045; 80053; 83605; 83880; 84484; 85007; 85027; 85610; 93005; 94640; 96374; 99285; J2919